=== PATIENT | female | born 1995 | race Caucasian/White ===

== ENCOUNTER 2019-03-23 20:48 | Emergency (ER) | payer OTHER ==
[2019-03-23 20:58] VITALS: BP 97/57
--- NOTE | 2019-03-23 21:23 | UC ---
Skin Complaint HPI - HPI Summary HPI Summary: Pt presents to With friend. pt states slept in an new environment last night. Pt woke with full body, itchy hives. PT states they have persisted throughout the day. Pt denies shortness of breath, face swelling, difficulty swallowing, lightheadedness. pt states took a shower (cool) which helped a little. Pt took off her leggings, but wearing same other clothes. Pt states ate cheetos last night - new and different food for her. Pt without history of food allergies. Denies new personal hygeine products but unknown products in sleep environment. Pt took 12.5 mg of benadryl 2 hours ago - states made very sleepy - "sensitive to medications." - History of Current Complaint Chief Complaint: UCRash Time Seen by Provider: 03/23/19 21:13 Stated Complaint: RASH/HIVES Hx Obtained From: Patient, Family/Pediatrics Hospitalist Hx Last Menstrual Period: 2 MONTHS (SEEING MD 05/08 FOR THIS) Onset/Duration: Sudden Onset Pain Intensity: 0 - Allergy/Home Medications Allergies/Adverse Reactions: Allergies Allergy/AdvReac Type Severity Reaction Status Date / Time hydromorphone [From Dilaudid] Allergy See Comment Verified 03/23/19 20:58 Home Medications: Home Medications diphenhydrAMINE HCl [Benadryl Allergy] 12.5 mg PO 03/23/19 [History] PMH/Surg Hx/FS Hx/Imm Hx Previously Healthy: Yes - Surgical History Surgical History: Yes Surgery Procedure, Year, and Place: APPENDECTOMY, 2006, [facility] – [place] - Family History Known Family History: Positive: Non-Contributory - Social History Occupation: Employed Part-time Lives: With Family Alcohol Use: Occasionally Substance Use Type: None Smoking Status (MU): Never Smoked Tobacco - Immunization History Vaccination Up to Date: Yes Review of Systems All Other Systems Reviewed And Are Negative: Yes Constitutional: Positive: Negative Skin: Positive: Rash Eyes: Positive: Negative ENT: Positive: Negative Respiratory: Positive: Negative Cardiovascular: Positive: Negative Gastrointestinal: Positive: Negative Physical Exam - Summary Physical Exam Summary: Vital Signs Reviewed: Yes A+Ox3, no distress Eyes: Conjunctiva Clear, DIANE. EOM intact and full ENT: Hearing grossly normal TM x 2 clear, mmoist, uvula midline, no exudate, no erythema, no intraoral edema Neck: Positive: Supple Respiratory: Positive: No respiratory distress, No accessory muscle use + CTA throughout no w/r, no stridor, cough Cardiovascular: RRR nl s1, s2 no m/r CBT <2 sec abd soft + BS nt/nd no guarding, no distension Musculoskeletal Exam: BAKER x 4 without difficulty Strength Intact, ROM Intact Neurological: Positive: Alert, + sensation throughout Psychological: Positive: Normal Response To Family Skin: Positive: no ecchymosis, pt with diffuse body hives including extremities , face, trunck, back, chest - pruritic Triage Information Reviewed: Yes Vital Signs: Initial Vital Signs Temp 99.7 F 03/23/19 20:55 Pulse 65 03/23/19 20:55 Resp 18 03/23/19 20:55 BP 97/57 03/23/19 20:55 Pulse Ox 100 03/23/19 20:55 Course/Dx - Course Course Of Treatment: pt woke with full body hives after sleeping in new environment - pt did eat cheetos last night - new food to her pt without any respiratlory complaints of facial swelling, difficulty swallowing. Pt did take benadryl without much improvement VSS Pt with prurtic full body hives exam not otherwise concerning Will Rx pred, pepcid avoid NSAIDS, heat f/u with PCP return precuations recommend change and wash all clothing since unclear agent comfort and agreement with plan - Diagnoses Provider Diagnosis: Urticaria Discharge - Sign-Out/Discharge Documenting (check all that apply): Patient Departure All imaging exams completed and their final reports reviewed: No Studies - Discharge Plan Condition: Stable Disposition: HOME Prescriptions: Famotidine TAB* [Pepcid 20 MG TAB*] 20 mg PO DAILY #12 tab predniSONE TAB* [Deltasone 20 MG TAB*] 40 mg PO DAILY #8 tab Patient Education Materials: Urticaria (ED) Forms: *Work Release Referrals: Georges Hoffman MD [Primary Care Provider] - Additional Instructions: - Take prednisone exactly as prescribed until gone - starting tomorrow - Okay to take Benadryl (1 tablets) every 6 hours as needed. This medication may cause drowsiness - do NOT drive, operate machinery or drink alcohol while taking Benadryl -Take pepcid as prescribed - 2 times daily for 7 days -Avoid getting over heated (hot showers, hot tubs, exercise) for at least 48 hours - Try to avoid aspirin, NSAIDs (Motrin, Aleve, Naprosyn) for 2-3 days - Okay to apply cool compresses to the area of injury - if you develop difficulty breathing, swelling inside your mouth or any other concerns it recommended you contact 911 and go to the emergency department immediately -Contact your doctor or return here with questions or concerns - Billing Disposition and Condition Condition: STABLE Disposition: Home
[2019-03-23] MEDS ORDERED: predniSONE TAB* 20 MG PO ONE (21:32)
[2019-03-23] MEDS ORDERED: Famotidine TAB* 20 MG PO ONE (21:32)
== END 2019-03-23 21:44 | disposition home or self-care (01) ==
LOC: UCEAST 20:48
DX: L50.9 Urticaria, unspecified (principal)
CPT/HCPCS: 99212; A9270-GY; G0463; J7512